=== PATIENT | female | born 1990 | race Caucasian/White ===

== ENCOUNTER → 2020-05-16 | Outpatient (CLI) | payer OTHER ==
[~2020-05-16] VITALS: Ht 175.3 cm; Wt 117.0 kg
[~2020-05-16] MED LIST: CLIMARA 0.1 PATCH.W1 TD; EPA FISH OIL1 SGL PO; SYNTHROID0.175 MG PO
[2020-05-16 08:00] VITALS: BP 120/70; PULSE 76
== END ==
LOC: LIGHT 07:50
DX: E66.8 Other obesity (principal); Z98.84 Bariatric surgery status; E11.9 Type 2 diabetes mellitus without complications
CPT/HCPCS: G0463

== ENCOUNTER → 2020-05-21 | Outpatient (CLI) | payer OTHER | LOC: LIGHT 15:33 | DX: E66.8 Other obesity (principal); Z68.38 Body mass index [BMI] 38.0-38.9, adult | CPT/HCPCS: G0463 ==

== ENCOUNTER → 2020-06-05 | Outpatient (CLI) | payer OTHER ==
[~2020-06-05] VITALS: Ht 175.3 cm; Wt 114.8 kg
[2020-06-05 16:42] VITALS: BP 108/76; PULSE 64
== END ==
LOC: LIGHT 05-31 10:16
DX: E66.8 Other obesity (principal); Z68.37 Body mass index [BMI] 37.0-37.9, adult; E78.5 Hyperlipidemia, unspecified; G47.30 Sleep apnea, unspecified
CPT/HCPCS: G0463

== ENCOUNTER → 2020-06-21 | Outpatient (CLI) | payer OTHER | LOC: LIGHT 16:06 ==

== ENCOUNTER → 2020-07-23 | Outpatient (CLI) | payer OTHER ==
[~2020-07-23] VITALS: Ht 175.3 cm; Wt 113.9 kg
[2020-07-23 16:41] VITALS: BP 106/62; PULSE 68
== END ==
LOC: LIGHT 15:37
DX: E66.8 Other obesity (principal); Z68.37 Body mass index [BMI] 37.0-37.9, adult
CPT/HCPCS: G0463

== ENCOUNTER 2020-08-21 13:21 | Inpatient (IN) | payer OTHER ==
[~2020-08-21] VITALS: Ht 176.5 cm; Wt 113.6 kg
[2020-09-05] VITALS (18 sets, daily range): BP systolic 120–151; BP diastolic 53–90; PULSE 71–89; TEMP 97.4–98.9
--- NOTE | 2020-09-05 14:30 | NUR ---
Patient to room 221 and report recieved from HUEY Goode. Patient drowsy but responsive. Rates pain at a "5", denies nausea currently. Surgical sites x5 and drain checked with HUEY Goode. Patient updated on plan of care. Call light in reach. See assessment documentation. Consulted with rn rehabilitation on floor. See physician notification.
--- NOTE | 2020-09-05 16:50 | NUR ---
Patient arrived to floor from OB via bed. Patient sleepy but rouses easily, returns to sleep quickly. Post op checks intiated. IVF per order. Patient denies needs, call light within reach.
--- NOTE | 2020-09-05 20:06 | NUR ---
PT IN BED WITH HOB AT 30 DEGREE ANGLE. PT HAS PAIN FROM SURGERY IN ABDOMINAL THAT IS RATED AT A 10/10, GAVE DILAUDID FOR PAIN. PT A/O X3. PT HAS NAUSEA AT THIS TIME, WILL GIVE ZOFRAN SOON IT IS DUE. NO NEEDS AT THIS TIME, CALL LIGHT WITHIN REACH.
[2020-09-06 03:33] VITALS: BP 127/67; PULSE 71; TEMP 98.4
--- NOTE | 2020-09-06 05:01 | NUR ---
SHIFT SUMMARY: PT HAD A HARDTIME CONTROLLING HER PAIN THIS SHIFT. PT FELT THAT WHEN SHE WAS GIVEN DIULADID IT MADE HER NAUSEAD. PT DID VOMIT ONCE. A COOL WASH CLOTH AND ICE CHIPS WERE GIVEN TO THE PT, WHICH SHE FELT HELPED. PT WAS GIVEN ZOFRAN X2. PT WAS GIVEN TRAMADOL AND TYLENOL. ADVISED PT THAT WILL TRY TO OVER LAP MEDICATION TO TRY AND KEEP PAIN UNDERCONTROL. PT DID GET UP AND WALK TO THE BATHROOM AND BACK TO BED X2, WITH GAITBELT AND GAIT WAS STEADY. PT HAD NO PROBLEMS WITH URINATION. PT CONCERNED THAT HER PAIN WILL BE TOO MUCH FOR HER TO TAKE AND MAY NOT BE ABLE TO GO HOME. PT IS RESTING COMFORTABLY IN BED AT THIS TIME, WITH CALL LIGHT WITHIN REACH, AND NO FURTHER NEEDS.
[2020-09-06 07:48] VITALS: BP 127/67; PULSE 66; TEMP 97.9
--- NOTE | 2020-09-06 11:00 | NUR ---
Patient is having some pain issues this morning. We got her switched to norco for pain and that seems to be working. Patient is zofran for nausea. She stated she is not able to eat or drink much due to the nausea. She has been independent in the room. Reminded her that she needs to walk 4 times a shift. Encouraged that she needs to try eating and drinking because the pain pills can also make her nauseated. No other changes at this time. Call light within reach.
--- NOTE | 2020-09-06 12:04 | NUR ---
First visit from the golf instructor. No needs right now.
[2020-09-06 12:14] VITALS: BP 122/64; PULSE 65; TEMP 97.5
[2020-09-06] MEDS ORDERED: NORCO 325 MG-51 TAB PO (12:27)
[2020-09-06] MEDS ORDERED: ZOFRAN 4MG T4 MG/TAB PO (12:27)
--- NOTE | 2020-09-06 12:52 | NUR ---
Electrolysis Operator met with patient to discuss discharge plan. Patient lives on [place] with her , Grey (ph#[phone]) and their three children ages seven, six, and four. Patient receives primary care and medications from [facility]. Patient uses a CPAP and no other DME. Patient is normally independent with ADLS. Patient does not have Advance Directives and next of kin would be her . Patient plans to return home upon discharge and states her , Grey will pick her up. SW will continue to follow as needed.
--- NOTE | 2020-09-06 16:20 | NUR ---
Patient is discharging home. Discharge instructions discussed with patient. She is aware of her follow up appointment and time. She verbalized understanding of how often to take the pain medications. Her zofran was sent to the pharmacy already. Explained the diet she is to be on when she gets home. No questions verbalized. Copies of discharge instructions sent with patient. All belongings packed up by patient. Patient walked out via wheel chair.
== END 2020-09-06 16:20 | disposition home or self-care (01) | DRG 621 ==
LOC: SURG 08-29 14:00 → INPTSU 09-05 09:23 → SURG 09-05 11:00 → OB 09-05 14:30 → JCC 09-05 16:30
PROVIDERS: ADMIT Surgery
PROC: 0DB64Z3 Excision of Stomach, Percutaneous Endoscopic Approach, Vertical (ICD-10-PCS; principal; 2020-09-05 11:00)
DX: E66.01 Morbid (severe) obesity due to excess calories (principal); Z68.37 Body mass index [BMI] 37.0-37.9, adult; Z85.850 Personal history of malignant neoplasm of thyroid; Z90.710 Acquired absence of both cervix and uterus; G47.30 Sleep apnea, unspecified; Z88.0 Allergy status to penicillin; Z88.5 Allergy status to narcotic agent
CPT/HCPCS: J0690; J1100; J1170; J1885; J2405; J2550; J2704; J3010; J3480; J7120